=== PATIENT | male | born 1980 | race African-American/Black ===

== ENCOUNTER 2016-09-25 08:57 | Emergency (ER) | payer MEDICAID ==
[~2016-09-25] VITALS: Ht 180.3 cm; Wt 72.6 kg
[2016-09-25 09:16] VITALS: BP 123/66
--- NOTE | 2016-09-25 09:22 | NUR ---
Patient ambulated to bed 04.
[2016-09-25] MEDS ORDERED: PHENAZOPYRIDINE 100 MG TAB PO ONE (09:30)
--- NOTE | 2016-09-25 09:31 | NUR ---
Dr. Whitaker evaluating patient at bedside.
--- NOTE | 2016-09-25 09:32 | NUR ---
PATIENT PRESENTS TO ED WITH C/O RIGHT INGUINAL AREA PAIN X 1WK;PAIN UPON VOIDING;ADMITS TO INJECTING METH AND SMOKING MARIJUANA; DENIES N/V/D; SKIN IS PINK/WARM/DRY; AAOX4 WITH EVEN AND STEADY GAIT; LUNGS CLEAR BL; HR EVEN AND REGULAR; PT DENIES ANY FEVER, CP, SOB, OR COUGH AT THIS TIME; PATIENT STATES PAIN OF 10/10 AT THIS TIME; VSS; PATIENT POSITIONED FOR COMFORT; HOB ELEVATED; BEDRAILS UP X2; BED DOWN. ALL MONITORS IN PLACED.
[2016-09-25] MEDS ORDERED: KETOROLAC 60 MG/2 ML VIAL IM ONE (09:35)
[2016-09-25] MEDS ORDERED: ONDANSETRON 4 MG ODT PO ONE (09:35)
[2016-09-25] MEDS ORDERED: HYDROmorphone PFS 2 MG/ML SYR IM ONE (09:35)
--- NOTE | 2016-09-25 09:40 | NUR ---
PATIENT PRESENTS TO ED WITH right inguinal pain with dysuria . PT STATES pain intermittent . DENIES N/V/D; SKIN IS PINK/WARM/DRY; AAOX4 WITH EVEN AND STEADY GAIT; LUNGS CLEAR BL; HR EVEN AND REGULAR; PT DENIES ANY FEVER, CP, SOB, OR COUGH AT THIS TIME; PATIENT STATES PAIN OF 10/10 AT THIS TIME; VSS; PATIENT POSITIONED FOR COMFORT; HOB ELEVATED; BEDRAILS UP X2; BED DOWN. ER MD MADE AWARE OF PT STATUS.
--- NOTE | 2016-09-25 09:45 | NUR ---
ice pack to right inguinal area
--- NOTE | 2016-09-25 09:45 | NUR ---
medicated as written prior to bedside ultrasound
--- NOTE | 2016-09-25 09:54 | NUR ---
Note undone in EDM - 09/25/16 at 0955 by MEDDEN PATIENT PRESENTS TO ED WITH C/O RIGHT INGUINAL AREA PAIN X 1WK;PAIN UPON VOIDING;ADMITS TO INJECTING METH AND SMOKING MARIJUANA; DENIES N/V/D; SKIN IS PINK/WARM/DRY; AAOX4 WITH EVEN AND STEADY GAIT; LUNGS CLEAR BL; HR EVEN AND REGULAR; PT DENIES ANY FEVER, CP, SOB, OR COUGH AT THIS TIME; PATIENT STATES PAIN OF 10/10 AT THIS TIME; VSS; PATIENT POSITIONED FOR COMFORT; HOB ELEVATED; BEDRAILS UP X2; BED DOWN. ALL MONITORS IN PLACED.
[2016-09-25 09:55] LABS: BILIRUBIN,URINE NEGATIVE (NEGATIVE); BLOOD, URINE NEGATIVE (NEGATIVE); COLOR,URINE YELLOW (YELLOW); LEUKOCYTE ESTERASE ,URINE 1+ (NEGATIVE); NITRITE, URINE NEGATIVE (NEGATIVE); PROTEIN,URINE NEGATIVE (NEGATIVE); UGLUCOSE NEGATIVE (NEGATIVE); UROBILINOGEN,URINE 0.2 EU/dL (0.2 - 1)
[2016-09-25 10:08] LABS: APPEARANCE,URINE HAZY (CLEAR); RBC,URINE NONE SEEN /HPF (0-5)
[2016-09-25 10:09] LABS: BACTERIA,URINE None Seen /HPF (None Seen); SQUAMOUS EPITHELIAL CELL,UR 0-3 (FEW) /LPF (0-3 (FEW)); WBC,URINE 20-60 /HPF (0-5)
--- NOTE | 2016-09-25 10:26 | NUR ---
PT STATES "I DON'T HAVE PAIN AT THIS MOMENT,MAYBE THE MEDICINE KICK IN ALREADY"NO FACIAL GRIMMACING/MOANING NOTED;WILL CONTINUE TO MONITOR PT.
--- NOTE | 2016-09-25 10:36 | NUR ---
resting with ou closed, feet remains elevated. awaits ultrasound read and dispo
--- NOTE | 2016-09-25 11:30 | NUR ---
Patient discharged with v/s stable. Written and verbal after care instructions given and explained. Patient alert, oriented and verbalized understanding of instructions. Ambulatory with steady gait. All questions addressed prior to discharge. ID band removed. Patient advised to follow up with PMD. Rx of zofran/percocet given. Patient educated on indication of medication including possible reaction and side effects. Opportunity to ask questions provided and answered.
[2016-09-25 11:31] VITALS: BP 120/69
[2016-09-27 06:30] LABS: CHLAMYDIA TRACHOMATIS AMP DNA Negative (Negative)
--- NOTE | 2016-09-27 15:21 | NUR ---
ADDENDUM: PATIENT POSITIVE FOR GONORRHEA.DISCHARGED WITH PRESCRIPTION OF CIPRO. REFERRED TO DR. MARCUM.CALLED PATIENT, NOT HOME. LEFT MSG. TO MOTHER TO CALL ME IN ER,PHONE NUMBER PROVIDED. PER DR. MARCUM,PATIENT NEED TO COME IN FOR FARTHER TX. LAB.RESULTS COPY PROVIDED TO MARKY,INFECTION CONTROL
== END 2016-09-25 11:30 | disposition home or self-care (01) ==
LOC: MED 08:57
DX: N45.1 Epididymitis (principal); N39.0 Urinary tract infection, site not specified; F15.10 Other stimulant abuse, uncomplicated
CPT/HCPCS: 36415; 76870; 81001; 87086; 87491; 96372; 99285; J1170; J1885; Q0092; S0119